=== PATIENT | male | born 1980 | race Two or more races ===

== ENCOUNTER 2021-05-18 20:33 | Emergency (ER) | payer OTHER ==
[~2021-05-18] VITALS: Ht 177.8 cm; Wt 100.0 kg
[2021-05-18 21:43] VITALS: BP 112/84
[2021-05-18] MEDS ORDERED: KETOROLAC TROMETHAMINE 30 MG/ML VIAL IM ONE (22:15)
== END 2021-05-18 23:38 | disposition home or self-care (01) ==
LOC: EMS 20:38
DX: S92.352A Displaced fracture of fifth metatarsal bone, left foot, initial encounter for closed fracture (principal); F12.90 Cannabis use, unspecified, uncomplicated; F17.210 Nicotine dependence, cigarettes, uncomplicated; W22.8XXA Striking against or struck by other objects, initial encounter; Y93.39 Activity, other involving climbing, rappelling and jumping off; Y92.89 Other specified places as the place of occurrence of the external cause; Y99.8 Other external cause status
CPT/HCPCS: 73610; 73630; 96372; 99284; J1885